=== PATIENT | male | born 2000 | race Caucasian/White ===

== ENCOUNTER 2024-06-10 18:34 | Emergency (ER) | payer OTHER, SELFPAY ==
--- NOTE | 2024-06-10 18:36 | ED.EYEPROB ---
HPI - Eye Problem General Chief complaint: Eye Problems Stated complaint: RT Eye red Time Seen by Provider: 06/10/24 18:45 Source: patient, RN notes reviewed and old records reviewed Mode of arrival: ambulatory Limitations: no limitations History of Present Illness HPI Narrative: 24 year male presents to the [facility] with red eye redness and tearing for 2 days. No trauma. Denies any itching or pain. Does not wear contacts. Onset (ago): day(s) (2) Treatments Prior to Arrival: none Related Data Allergies Allergy/AdvReac Type Severity Reaction Status Date / Time No Known Allergies Allergy Verified 06/10/24 18:47 Review of Systems Review of Systems: All systems reviewed & are unremarkable except as noted in HPI and below Constitutional: Constitutional: Reports no additional constitutional complaints Eyes: Eyes: Reports as per HPI ENT: Reports system reviewed and no additional complaints, except as documented Cardiovascular: Cardiovascular: Reports no additional cardiovascular complaints, Denies chest pain and Denies dyspnea Respiratory: Respiratory: Reports no additional respiratory complaints, Denies chest congestion, Denies cough and Denies dyspnea Musculoskeletal: Musculoskeletal: Reports no additional musculoskeletal complaints Integumentary/Breasts: Skin/Breast: Reports system reviewed and no additional complaints, except as [facility]u [facility] Family History Family History Father Hypertension High cholesterol Mother No problems noted. Social History Social History Smoking status: Never smoker Comments At the time of my signature, I reviewed and agree with the nursing past medical, surgical, social, and family history. There is no relevant family history pertinent to the patient complaint. Exam Const: General: cooperative, healthy appearing, comfortable, no acute distress, well developed, alert and well nourished Nutritional Appearance: well nourished Orientation/consciousness: patient oriented x3 Limitations: no limitations HENMT: Head: normal to inspection Ears: hearing grossly normal bilaterally, external ears normal, TM's normal bilaterally, mastoids normal and no periauricular adenopathy Mouth: Yes Normal oral and palatal mucosa present, Yes lip normal, Yes tongue normal and Yes moist mucous membranes Throat: posterior oropharynx normal, uvula midline and no uvular edema Eyes: General: appearance normal, both eyes and all related structures Alignment and Position: alignment normal Conjunctivae: conjunctival abnormality right discharge (Take clear); without injection and without subconjunctival hemmorhages Neck: Neck: normal visual inspection, full ROM, no lymphadenopathy and no meningeal signs Chest: Chest palpation & inspection: normal inspection of the chest Resp: Effort & Inspection: normal respiratory effort and able to speak in complete sentences Auscultation: clear to auscultation bilaterally, no crackles, no rales, no rhonchi and no wheezes Cardio: Rate: regular rate Skin: General skin exam: normal color and no rashes or lesions noted Neuro: General: patient oriented x3, gait normal, moves all extremities and no meningeal signs Cognition (Neuro): normal cognition Speech: normal speech Gait exam (Neuro): Normal gait present Extrem: General: normal to inspection, full ROM, capillary refill normal and normal gait Psych: Appearance: grossly normal and well kempt Mental Status: mental status grossly normal Speech and movement: Normal speech and movement present and Clear speech present Affect: normal affect Attitude: cooperative Course Course Level of Care: Express Care Visit Vital Signs Vital signs: Vital Signs Temperature 98.2 F 06/10/24 18:43 Pulse Rate 70 06/10/24 18:43 Respiratory Rate 17 06/10/24 18:43 Blood Pressure 146/89 H 06/10/24 18:43 Pulse Oximetry 98 06/10/24 18:43 Oxygen Delivery Room Air 06/10/24 18:43 Temperature 98.2 F 06/10/24 18:43 Pulse Rate 70 06/10/24 18:43 Respiratory Rate 17 06/10/24 18:43 Blood Pressure 146/89 H 06/10/24 18:43 Pulse Oximetry 98 06/10/24 18:43 Oxygen Delivery Room Air 06/10/24 18:43 Reviewed MDM - Eye Problem MDM Narrative Medical decision making narrative: Patient is sitting in exam room. Patient is nontoxic, vitals stable. Patient presents with lateral right eye redness. Increased tearing. No injection. Patient appropriate for outpatient treatment with close follow-up Differential Diagnosis Differential diagnosis: Likely corneal abrasion, conjunctivitis and acute iritis Critical Care Time Critical Care Time Critical Care Time: No Discharge Plan Discharge Clinical Impression: Eye irritation, Eye redness Patient Disposition: Home Condition: Stable Instructions: Allergies (ED) Additional Instructions: Take Claritin or Zyrtec daily Use Zaditor eyedrops as per package instructions Use the erythromycin, antibiotic ointment for comfort Follow-up with an eye doctor Hannah: [place]- [phone] [place] [phone] [facility] [phone] Alan: [facility] [phone] or [phone] [facility] [phone] [facility] [phone] [facility] [phone] [facility]- [phone] Patient Language: Guamanian Prescriptions: New erythromycin 5 mg/gram (0.5 %) ointment 0.5 inch RIGHT EYE TID Qty: 3.5 0RF Follow-up/Referrals: UNKNOWN,DOCTOR [Non-Staff] - Time of Disposition: 18:50
--- OUTSIDE RECORDS SUMMARY | 2024-06-10 18:37 | XMS_ITS | Clinical Summary ---
Author Organization [facility] Address [address] [place] [address] Care Team Providers Care Jailor Name Role Phone Sabino Leigh MD Primary Care Provider [phone] Source Comments [facility]non-owned Affiliates and Associated Physician Practices is amultiple site organization consisting of ambulatory clinics and hospital sitesin [place], [place], [place] and [place]. This disclosure is being madepursuant to the Care Everywhere program and may not contain all information available regarding this patient. Last updated 17[employer] Allergies No known active allergies Medications * Be aware that medications may not be up to date on this document. Alwaysverify current medications with the patient. No known medications Active Problems Problem Noted Date Diagnosed Date Multiple nevi 10/07/2016 Screening for condition 08/19/2011 Overview (10/07/2016): 08/19/11 POC Lipid Profile WNL Well child visit 12/29/2009 Overview (10/07/2016): 9 yo 01/08/ 10 yo No WCC 11 yo 08/19/11 12 yo 09/02/12 13 yo 09/05/13 14 yo 09/05/14 15 yo 09/14/15 16 yo 10/07/16 Resolved Problems Problem Noted Date Diagnosed Date Resolved Date Sinusitis, acute 01/12/2014 07/05/2014 Overview (01/15/2014): 01/12/14 Zithromax Molluscum contagiosum 08/19/20112015 Encopresis 08/19/2011 09/14/2015 Overview (12/31/2014): Nocturnal enuresis 08/19/2011 6 Overview (09/16/2013): 09/19/11 DDAVP 07/05/13 Ditropan 5 mg 09/05/13 Ditropan 10 mg Pityriasis rosea 12/29/2009 09/14/2015 Immunizations Immunization Administration Dates Next Due DTaP VACCINE IM (6wk-6yrs) 06/10/2004,,2000, 1,2000 HEP A PEDS 2 DOSE 09/07/2006,09/29/2005 HEP B VACCINE, PED/ADOL 08/10/2001,2000, HIB BOOSTER 08/10/2001,2000,2000 Influenza Nasal 01/04/2008,01/02/2007,01/09/2006 MENINGOCOCCAL ACWY (MCV4P) VAC IM 10/07/2016, MMR 09/29/2005,05/18/2001 PNEUMOCOCCAL CONJ, PEDS 08/10/2001,02/08,2000, 1 POLIO IPV 09/29/2005, 1,2000, 1 PPD 06/10/2004 TDAP (7yrs+) 08/19/2011 VARICELLA 09/06/2007,05/20/2001 Social History Tobacco Use Types Packs/Day Years Used Date Smoking Tobacco: Never Smokeless Tobacco: Never Alcohol Use Standard Drinks/Week Comments No 0 (1 standard drink = 0.6 oz pur e alcohol) Sex and Gender Information Value Date Recorded Sex Assigned at Not on file 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 Gender Identity Not on file Sexual Orientation Not on file Last Filed Vital Signs Vital Sign Reading Time Taken Comments Blood Pressure 122/64 10/06/2017 4:06 PM CDT Pulse 83 01/12/2014 1:06 PM TILE HELPER Temperature 36.3 C (97.4 F) 10/06/2017 4:06 PM CDT Respiratory Rate - - Oxygen Saturation 99% 01/12/2014 1:06 PM TILE HELPER Inhaled Oxygen Concentration - - Weight 63.7 kg (140 lb 8 oz) 10/06/2017 4:06 PM CDT Height 177.2 cm (5' 9.76 ) 10/06/2017 4:06 PM CD T Body Mass Index 20.3 10/06/2017 4:06 PM CDT Plan of Treatment Health Maintenance Due Date Last Done Comments HIV SCREENING 05/08/2015 HPV VACCINE (1 - Male 3-dose series) 05/08/2015 HEPATITIS C SCREENING 05/03/2018 DTAP/TDAP/TD VACCINES (7 - Td or Tdap) 08/18/2021 08/19/2011, 06/10/2004, 08/10/2001, Additional history exists COVID-19 VACCINE ( - 2023- season) 2023 DEPRESSION SCREENING 02/24/2024 INFLUENZA VACCINE (Season Ended) 2024 01/04/2008, 01/02/2007, 01/09/2006 ZOSTER VACCINE (1 of 2) 2050 HEPATITIS B VACCINE Completed 08/10/2001, 2000, 2000 HIB VACCINE Completed 08/10/2001, 08/24, 2000 PNEUMOCOCCAL VACCINE Completed 08/10/2001, 02/08/2001, 2000, Additional history exists MENINGOCOCCAL GROUPS A/C/Y/W VACCINE Completed 10/07/2016, 08/19/2011 MENINGOCOCCAL (Group B) VACCINE SHARED DECISION-MAKING Aged Out No longer eligible based on patient's age to complete this topic Goals Goal Patient Goal Type Associated Problems Recent Progress Patient-Stated? Author Use safety retraint in car Lifestyle On track( 018 3:25 PM CDT) Ginger Diehl [facility] Care Teams Jailor Relationship Specialty Start Date End Date Sabino Leigh MD PCP - General Pediatrics 01/12/14
--- OUTSIDE RECORDS SUMMARY | 2024-06-10 18:37 | XMS_ITS | Clinical Summary ---
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 Gender Identity Not on file Sexual Orientation Not on file Plan of Treatment Health Maintenance Due Date Last Done Comments Annual Physical 05/08/2003 HPV Vaccines (1 - Male 3-dos e series) 05/08/2015 Hepatitis C 2018 DTaP, Tdap and Td Vaccines ( 1 - Tdap) 05/08/2019 Hepatitis B Vaccines (1 of 3 - 19+ 3-dose series) 05/08/2019 COVID-19 Vaccine (3 - 2023-2 5 season) 2023 01/12/2021, 12/22/2020 Meningococcal Vaccine Completed 10/07/2016 Meningococcal B Vaccine Aged Out No l onger eligible based on patient's age to complete this topic Pneumococcal Vaccine: Pediatrics (0 to 5 Years) and At-Risk Patients (6 to 49 Years) Aged Out No longer eligible b ased on patient's age to complete this topic RSV Immunizations Under 20 Months Aged Out No longer eligible b ased on patient's age to complete this topic Insurance [employer] Care Teams Cartographic Engineer Relationship Specialty Start Date End Date None, Provider, MD PCP - General UNKNOWN PHYSICIAN SPECIALTY 10/26/22
[2024-06-10 18:43] VITALS: BP 146/89; PULSE 70; RESP 17; TEMP 36.8; O2SAT 98
== END 2024-06-10 18:51 | disposition home or self-care (01) ==
PROVIDERS: Emergency Provider Nurse Practitioner
DX: H57.11 Ocular pain, right eye (principal); H57.89 Other specified disorders of eye and adnexa
CPT/HCPCS: 99213; G0463